=== PATIENT | female | born 1980 | race Caucasian/White ===

== ENCOUNTER 2018-06-30 11:17 | Emergency (ER) | payer OTHER, BC ==
[2018-06-30 11:47] VITALS: BP 116/78; PULSE 88; TEMP 97.8; BMI 20.8
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
[2018-06-30] MEDS ORDERED: NAPROXEN 250 MG TABLET (FP) PO ONE (12:14)
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
[2018-06-30] MEDS ORDERED: NAPROXEN 250 MG TABLET (FP) ONE (12:41)
== END 2018-06-30 13:45 | disposition home or self-care (01) ==
LOC: FER 11:17
DX: M54.5 Low back pain (principal); V43.62XA Car passenger injured in collision with other type car in traffic accident, initial encounter; Y93.89 Activity, other specified; Y92.410 Unspecified street and highway as the place of occurrence of the external cause; M06.9 Rheumatoid arthritis, unspecified; G89.29 Other chronic pain; M51.9 Unspecified thoracic, thoracolumbar and lumbosacral intervertebral disc disorder; M79.7 Fibromyalgia
CPT/HCPCS: 72100-TC-FY; 99282-25